=== PATIENT | male | born 2000 | race Asian ===

== ENCOUNTER 2020-12-13 14:14 | Emergency (ER) | payer SELFPAY ==
[2020-12-13] MEDS ORDERED: TRAMADOL 50 MG TAB PO (15:11)
[2020-12-13] MEDS ORDERED: KETOROLAC10 MG PO (15:11)
[2020-12-13 15:27] VITALS: BP 124/67
== END 2020-12-13 15:28 | disposition home or self-care (01) ==
LOC: ED 14:14
DX: S60.221A Contusion of right hand, initial encounter (principal); S50.12XA Contusion of left forearm, initial encounter; W20.8XXA Other cause of strike by thrown, projected or falling object, initial encounter; Y93.89 Activity, other specified
CPT/HCPCS: J1885